=== PATIENT | female | born 1990 | race Hispanic/Latino ===

== ENCOUNTER 2017-08-29 13:00 | Emergency (ER) | payer BC, MEDICAID ==
[2017-08-29] MEDS ORDERED: IPRATROPIUM/ALBUTEROL SULFATE 3 ML SOLUTION IH ONE (13:51)
[2017-08-29 13:58] LABS: RAPID GROUP A STREP NEGATIVE (NEGATIVE)
== END 2017-08-29 14:58 | disposition home or self-care (01) ==
LOC: EDH 13:00
DX: J06.9 Acute upper respiratory infection, unspecified (principal); Z88.0 Allergy status to penicillin; Z87.891 Personal history of nicotine dependence
CPT/HCPCS: 87804; 87880; 94640

== ENCOUNTER 2019-07-30 14:04 | Emergency (ER) | payer BC ==
[2019-07-30 15:27] LABS: BILIRUBIN,URINE Negative (NEGATIVE); COLOR,URINE Dark Yellow (YELLOW); GLUCOSE, URINE (UA) Negative (NEGATIVE); KETONES,URINE Negative (NEGATIVE); LEUKOCYTE ESTERASE ,URINE Negative (NEGATIVE); NITRATE,URINE Negative (NEGATIVE); OCCULT BLOOD,URINE Moderate (NEGATIVE); PROTEIN,URINE Trace mg/dL (NEGATIVE)
[2019-07-30 15:32] LABS: HCG,QUAL RESULT NEGATIVE (NEGATIVE)
[2019-07-30 15:34] LABS: APPEARANCE,URINE SLIGHTLY CLOUDY (CLEAR)
[2019-07-30 15:37] LABS: AMPHET/METH SCREEN,URINE NEGATIVE (NEGATIVE); BARBITURATE SCREEN, URINE NEGATIVE (NEGATIVE); BENZODIAZEPINES SCREEN,URINE NEGATIVE (NEGATIVE); CANNABINOID SCREEN,URINE NEGATIVE (NEGATIVE); COCAINE SCREEN,URINE NEGATIVE (NEGATIVE); OPIATE SCREEN,URINE NEGATIVE (NEGATIVE); PHENCYCLIDINE SCREEN,URINE NEGATIVE (NEGATIVE)
[2019-07-30 15:40] LABS: BACTERIA,URINE Few /HPF (None Seen); MUCUS,URINE Few LPF (None Seen); RBC,URINE None Seen /HPF (0-1)
[2019-07-30 15:56] LABS: BASOPHILS % (AUTO) 0.4 % (0.0-5.0); EOSINOPHILS % (AUTO) 0.6 % (0.0-8.0); HEMATOCRIT 35.5 % (36-48); LYMPHOCYTES % (AUTO) 12.7 % (21.0-51.0); MEAN CORPUSCULAR HEMOGLOBIN 29.3 pg (27.0-33.0); MEAN CORPUSCULAR HGB CONC 33.5 g/dL (32.0-36.0); MEAN CORPUSCULAR VOLUME 87.4 fL (79-99); MONOCYTES % (AUTO) 4.6 % (3.0-13.0); NEUTROPHILS % (AUTO) 81.3 % (40.0-77.0); PLATELET COUNT (AUTO) 314 K/uL (130-400); RED BLOOD CELL COUNT(AUTO) 4.06 MIL/uL (4.00-5.50); RED CELL DISTRIBUTION WIDTH 11.9 % (11.0-15.5)
[2019-07-30 16:14] LABS: ALBUMIN 3.8 g/dL (3.5-5.0); BILIRUBIN,TOTAL 0.7 mg/dL (0.2-1.0); CREATININE 0.6 mg/dL (0.5-1.5); POTASSIUM 3.6 mmol/L (3.5-5.1); TOTAL PROTEIN, SERUM 6.8 g/dL (6.0-8.3)
== END 2019-07-30 16:56 | disposition home or self-care (01) ==
LOC: EDH 14:04
DX: N94.89 Other specified conditions associated with female genital organs and menstrual cycle (principal); R10.30 Lower abdominal pain, unspecified; R51 Headache; Z88.0 Allergy status to penicillin; Z87.891 Personal history of nicotine dependence
CPT/HCPCS: 36415; 80053; 80305; 81001; 81025; 85025

== ENCOUNTER 2021-08-08 15:42 | Emergency (ER) | payer BC ==
[~2021-08-08] VITALS: Ht 170.2 cm; Wt 67.1 kg
[2021-08-08 16:45] VITALS: BP 115/81
== END 2021-08-08 17:03 | disposition home or self-care (01) ==
LOC: EDH 15:42
DX: B34.9 Viral infection, unspecified (principal); Z20.822 Contact with and (suspected) exposure to COVID-19; Z88.0 Allergy status to penicillin
CPT/HCPCS: 87635; 87804 ×2; 99283; C9803

== ENCOUNTER 2021-12-23 19:46 | Emergency (ER) | payer BC ==
[~2021-12-23] VITALS: Ht 170.2 cm; Wt 66.7 kg
[2021-12-23 20:27] LABS: BASOPHILS % (AUTO) 0.7 % (0.0-5.0); EOSINOPHILS % (AUTO) 2.9 % (0.0-8.0); HEMATOCRIT 40.4 % (36-48); LYMPHOCYTES % (AUTO) 36.6 % (21.0-51.0); MEAN CORPUSCULAR HEMOGLOBIN 29.8 pg (27.0-33.0); MEAN CORPUSCULAR HGB CONC 33.9 g/dL (32.0-36.0); MEAN CORPUSCULAR VOLUME 87.8 fL (79-99); MONOCYTES % (AUTO) 6.1 % (3.0-13.0); NEUTROPHILS % (AUTO) 53.5 % (40.0-77.0); PLATELET COUNT (AUTO) 203 K/uL (130-400); RED CELL DISTRIBUTION WIDTH 12.3 % (11.0-15.5)
[2021-12-23] MEDS ORDERED: LORAZEPAM 1 MG TABLET PO ONE (20:30)
[2021-12-23 20:34] LABS: CREATININE 0.6 mg/dL (0.5-1.5); POTASSIUM 4.1 mmol/L (3.5-5.1)
[2021-12-23 20:40] LABS: ALBUMIN 4.3 g/dL (3.5-5.0); BILIRUBIN,TOTAL 0.4 mg/dL (0.2-1.0); TOTAL PROTEIN, SERUM 7.6 g/dL (6.0-8.3)
[2021-12-23 20:49] LABS: APPEARANCE,URINE Cloudy (CLEAR); BILIRUBIN,URINE Negative (NEGATIVE); COLOR,URINE Yellow (YELLOW); GLUCOSE, URINE (UA) Negative (NEGATIVE); KETONES,URINE Negative (NEGATIVE); LEUKOCYTE ESTERASE ,URINE Moderate (NEGATIVE); NITRATE,URINE Negative (NEGATIVE); OCCULT BLOOD,URINE Negative (NEGATIVE); PROTEIN,URINE Negative (NEGATIVE)
[2021-12-23 20:55] LABS: HCG,QUAL RESULT NEGATIVE (NEGATIVE)
[2021-12-23 21:21] LABS: BACTERIA,URINE Few /HPF (None Seen); MUCUS,URINE Rare LPF (None Seen); SQUAMOUS EPITHELIAL CELL,UR Many /HPF (0-2)
[2021-12-23 21:41] VITALS: BP 124/57
== END 2021-12-23 21:53 | disposition home or self-care (01) ==
LOC: EDH 19:46
DX: F41.0 Panic disorder [episodic paroxysmal anxiety] (principal); Z88.0 Allergy status to penicillin
CPT/HCPCS: 36415; 71045; 80053; 81001; 81025; 84484; 85025; 87088; 93005

== ENCOUNTER 2022-02-25 10:22 | Emergency (ER) | payer BC ==
[~2022-02-25] VITALS: Ht 172.7 cm; Wt 67.6 kg
[2022-02-25 10:45] LABS: APPEARANCE,URINE CLEAR (CLEAR); BILIRUBIN,URINE NEGATIVE (NEGATIVE); COLOR,URINE YELLOW (YELLOW); GLUCOSE, URINE (UA) NEGATIVE (NEGATIVE); KETONES,URINE NEGATIVE (NEGATIVE); LEUKOCYTE ESTERASE ,URINE TRACE (NEGATIVE); NITRATE,URINE NEGATIVE (NEGATIVE); OCCULT BLOOD,URINE MODERATE (NEGATIVE); PH,URINE 5.5 (5.0-8.0); PROTEIN,URINE NEGATIVE (NEGATIVE); UROBILINOGEN,URINE 0.2 mg/dL (0.2-1.0)
[2022-02-25 11:12] LABS: BASOPHILS % (AUTO) 0.5 % (0.0-5.0); EOSINOPHILS % (AUTO) 3.4 % (0.0-8.0); LYMPHOCYTES % (AUTO) 22.3 % (21.0-51.0); MEAN CORPUSCULAR HEMOGLOBIN 29.1 pg (27.0-33.0); MEAN CORPUSCULAR HGB CONC 33.9 g/dL (32.0-36.0); MEAN CORPUSCULAR VOLUME 85.6 fL (79-99); MONOCYTES % (AUTO) 5.1 % (3.0-13.0); NEUTROPHILS % (AUTO) 68.3 % (40.0-77.0); PLATELET COUNT (AUTO) 327 K/uL (130-400); RED BLOOD CELL COUNT(AUTO) 4.44 MIL/uL (4.00-5.50); RED CELL DISTRIBUTION WIDTH 12.4 % (11.0-15.5); WHITE BLOOD COUNT (AUTO) 8.2 K/uL (4.8-10.8)
[2022-02-25 11:40] LABS: BACTERIA,URINE Moderate /HPF (None Seen)
[2022-02-25 12:31] VITALS: BP 131/69
== END 2022-02-25 12:33 | disposition home or self-care (01) ==
LOC: EDH 10:22
DX: N93.8 Other specified abnormal uterine and vaginal bleeding (principal); Z88.0 Allergy status to penicillin
CPT/HCPCS: 36415; 81001; 84703; 85025; 86850; 86900; 86901; 87088

== ENCOUNTER 2022-04-06 11:29 | Emergency (ER) | payer BC ==
[~2022-04-06] VITALS: Ht 170.2 cm; Wt 68.9 kg
[2022-04-06 11:34] VITALS: BP 136/90
[2022-04-06] MEDS ORDERED: ONDANSETRON ODT 4MG TAB SL ONE (12:00)
[2022-04-06 12:03] LABS: BASOPHILS % (AUTO) 0.4 % (0.0-5.0); EOSINOPHILS % (AUTO) 2.4 % (0.0-8.0); HEMATOCRIT 38.4 % (36-48); LYMPHOCYTES % (AUTO) 18.4 % (21.0-51.0); MEAN CORPUSCULAR HEMOGLOBIN 29.6 pg (27.0-33.0); MEAN CORPUSCULAR HGB CONC 33.6 g/dL (32.0-36.0); MEAN CORPUSCULAR VOLUME 88.1 fL (79-99); MONOCYTES % (AUTO) 6.2 % (3.0-13.0); NEUTROPHILS % (AUTO) 72.3 % (40.0-77.0); PLATELET COUNT (AUTO) 371 K/uL (130-400); RED BLOOD CELL COUNT(AUTO) 4.36 MIL/uL (4.00-5.50); RED CELL DISTRIBUTION WIDTH 12.7 % (11.0-15.5); WHITE BLOOD COUNT (AUTO) 10.2 K/uL (4.8-10.8)
[2022-04-06 12:04] LABS: APPEARANCE,URINE CLEAR (CLEAR); BILIRUBIN,URINE NEGATIVE (NEGATIVE); COLOR,URINE YELLOW (YELLOW); GLUCOSE, URINE (UA) NEGATIVE (NEGATIVE); KETONES,URINE NEGATIVE (NEGATIVE); LEUKOCYTE ESTERASE ,URINE MODERATE (NEGATIVE); NITRATE,URINE NEGATIVE (NEGATIVE); OCCULT BLOOD,URINE NEGATIVE (NEGATIVE); PH,URINE 7.5 (5.0-8.0); PROTEIN,URINE NEGATIVE (NEGATIVE); UROBILINOGEN,URINE 0.2 mg/dL (0.2-1.0)
[2022-04-06 12:11] LABS: BACTERIA,URINE Rare /HPF (None Seen); RBC,URINE 0-1 /HPF (0-1); SQUAMOUS EPITHELIAL CELL,UR Moderate /HPF (0-2)
[2022-04-06 12:11] LABS: CREATININE 0.6 mg/dL (0.5-1.5); POTASSIUM 3.7 mmol/L (3.5-5.1)
[2022-04-06] MEDS ORDERED: CEFTRIAXONE 1G VIAL IVP ONE (12:30)
[2022-04-06] MEDS ORDERED: 0.9%NACL 1000ML 1,000 ML IV SCH (12:30)
[2022-04-06 12:38] LABS: ALBUMIN 4.1 g/dL (3.5-5.0); TOTAL PROTEIN, SERUM 7.6 g/dL (6.0-8.3)
[2022-04-06] MEDS ORDERED: ONDA4TAB10 PO (13:20)
[2022-04-06] MEDS ORDERED: CEPH500B PO (13:20)
== END 2022-04-06 13:49 | disposition home or self-care (01) ==
LOC: EDH 11:29
DX: O23.41 Unspecified infection of urinary tract in pregnancy, first trimester (principal); N13.9 Obstructive and reflux uropathy, unspecified; E86.0 Dehydration; Z3A.01 Less than 8 weeks gestation of pregnancy
CPT/HCPCS: 99284; 96374; 76801; 96361; 80053; 84702; 85025; 87088; 81001; 36415; J7030; J0696

== ENCOUNTER 2022-05-07 20:54 | Emergency (ER) | payer BC ==
[~2022-05-07] VITALS: Ht 170.2 cm; Wt 67.1 kg
[~2022-05-07 20:54] MED LIST: CEPH500B PO; ONDA4TAB10 PO
[2022-05-07 21:19] LABS: APPEARANCE,URINE CLEAR (CLEAR); BILIRUBIN,URINE NEGATIVE (NEGATIVE); COLOR,URINE COLORLESS (YELLOW); GLUCOSE, URINE (UA) NEGATIVE (NEGATIVE); KETONES,URINE 40 mg/dL (NEGATIVE); LEUKOCYTE ESTERASE ,URINE NEGATIVE Leu/uL (NEGATIVE); NITRATE,URINE NEGATIVE (NEGATIVE); OCCULT BLOOD,URINE NEGATIVE (NEGATIVE); PROTEIN,URINE NEGATIVE (NEGATIVE); UROBILINOGEN,URINE 0.2 mg/dL (0.2-1.0)
[2022-05-07 21:23] LABS: BASOPHILS % (AUTO) 0.3 % (0.0-5.0); EOSINOPHILS % (AUTO) 2.2 % (0.0-8.0); HEMATOCRIT 39.5 % (36-48); LYMPHOCYTES % (AUTO) 21.5 % (21.0-51.0); MEAN CORPUSCULAR HEMOGLOBIN 29.6 pg (27.0-33.0); MEAN CORPUSCULAR HGB CONC 34.9 g/dL (32.0-36.0); MEAN CORPUSCULAR VOLUME 84.6 fL (79-99); MONOCYTES % (AUTO) 5.2 % (3.0-13.0); NEUTROPHILS % (AUTO) 70.4 % (40.0-77.0); PLATELET COUNT (AUTO) 326 K/uL (130-400); RED BLOOD CELL COUNT(AUTO) 4.67 MIL/uL (4.00-5.50); RED CELL DISTRIBUTION WIDTH 12.7 % (11.0-15.5)
[2022-05-07 21:25] LABS: RBC,URINE 0-1 /HPF (0-1); SQUAMOUS EPITHELIAL CELL,UR MOD /HPF (0-2)
[2022-05-07 21:38] LABS: CREATININE 0.6 mg/dL (0.5-1.5); POTASSIUM 3.9 mmol/L (3.5-5.1)
[2022-05-07 22:04] LABS: ALBUMIN 4.1 g/dL (3.5-5.0)
[2022-05-07 22:32] VITALS: BP 128/67
== END 2022-05-07 22:35 | disposition home or self-care (01) ==
LOC: EDH 20:54
DX: O46.91 Antepartum hemorrhage, unspecified, first trimester (principal); Z88.0 Allergy status to penicillin; Z98.890 Other specified postprocedural states; Z3A.10 10 weeks gestation of pregnancy
CPT/HCPCS: 36415; 76801; 80053; 81001; 84702; 85025; 86900; 86901

== ENCOUNTER 2022-06-08 19:59 | Emergency (ER) | payer BC, MEDICAID ==
[~2022-06-08] VITALS: Ht 18303.2 cm; Wt 66.2 kg
[2022-06-08] MEDS ORDERED: 0.9%NACL 1000ML 1,000 ML IV ONE ×2 (22:14→22:30)
[2022-06-08] MEDS ORDERED: ONDANSETRON 4MG INJ ONE (22:14)
[2022-06-08] MEDS ORDERED: MORPHINE 4 MG SYG IVP ONE (22:30)
[2022-06-08] MEDS ORDERED: ONDANSETRON 4MG INJ IVP ONE (22:30)
[2022-06-09] MEDS ORDERED: ONDA22I PO
[2022-06-09 00:03] VITALS: BP 121/58
== END 2022-06-09 00:14 | disposition home or self-care (01) ==
LOC: EDH 19:59
DX: O26.92 Pregnancy related conditions, unspecified, second trimester (principal); R51.9 Headache, unspecified; Z3A.16 16 weeks gestation of pregnancy; Z88.0 Allergy status to penicillin; Z20.822 Contact with and (suspected) exposure to COVID-19
CPT/HCPCS: 99284; 96374; 87635; 96361; 96375; 87804 ×2; C9803; J7030; J2405; J2270

== ENCOUNTER 2022-06-29 12:32 | Emergency (ER) | payer BC, MEDICAID, OTHER ==
[~2022-06-29] VITALS: Ht 170.2 cm; Wt 65.3 kg
[~2022-06-29 12:32] MED LIST changes: +ONDA22I PO
[2022-06-29 13:23] VITALS: BP 105/66
[2022-06-29] MEDS ORDERED: ACETAMINOPHEN 500 MG TABLET ONE (14:56)
[2022-06-29] MEDS ORDERED: ACETAMINOPHEN 500 MG TABLET PO ONE (15:00)
[2022-06-29 15:10] LABS: APPEARANCE,URINE CLOUDY (CLEAR); BILIRUBIN,URINE NEGATIVE (NEGATIVE); COLOR,URINE LIGHT-YELLOW (YELLOW); GLUCOSE, URINE (UA) NEGATIVE (NEGATIVE); KETONES,URINE NEGATIVE (NEGATIVE); LEUKOCYTE ESTERASE ,URINE 500 Leu/uL (NEGATIVE); NITRATE,URINE NEGATIVE (NEGATIVE); OCCULT BLOOD,URINE NEGATIVE (NEGATIVE); PH,URINE 6.5 (5.0-8.0); PROTEIN,URINE NEGATIVE (NEGATIVE); UROBILINOGEN,URINE 0.2 mg/dL (0.2-1.0)
[2022-06-29 15:21] LABS: BACTERIA,URINE MANY /HPF (None Seen); MUCUS,URINE RARE LPF (None Seen); SQUAMOUS EPITHELIAL CELL,UR MOD /HPF (0-2); YEAST,URINE BUDDING FEW /HPF (None Seen)
[2022-06-29] MEDS ORDERED: CEFTRIAXONE 1G VIAL IM ONE (15:30)
[2022-06-29] MEDS ORDERED: CEFTRIAXONE 1G VIAL ONE (15:57)
[2022-06-29] MEDS ORDERED: LIDOCAINE HCL 1% 10 ML VIAL ONE (15:59)
[2022-06-29] MEDS ORDERED: ACET-2247 PO (16:06)
[2022-06-29] MEDS ORDERED: CEPH500B PO (16:06)
[2022-06-29 16:12] LABS: BASOPHILS % (AUTO) 0.1 % (0.0-5.0); EOSINOPHILS % (AUTO) 2.2 % (0.0-8.0); HEMATOCRIT 35.5 % (36-48); LYMPHOCYTES % (AUTO) 22.3 % (21.0-51.0); MEAN CORPUSCULAR HEMOGLOBIN 29.5 pg (27.0-33.0); MEAN CORPUSCULAR HGB CONC 34.9 g/dL (32.0-36.0); MEAN CORPUSCULAR VOLUME 84.3 fL (79-99); MONOCYTES % (AUTO) 5.3 % (3.0-13.0); NEUTROPHILS % (AUTO) 69.5 % (40.0-77.0); PLATELET COUNT (AUTO) 302 K/uL (130-400); RED BLOOD CELL COUNT(AUTO) 4.21 MIL/uL (4.00-5.50); RED CELL DISTRIBUTION WIDTH 13.8 % (11.0-15.5); WHITE BLOOD COUNT (AUTO) 8.7 K/uL (4.8-10.8)
[2022-06-29 16:49] LABS: ALBUMIN 3.1 g/dL (3.5-5.0); CREATININE 0.5 mg/dL (0.5-1.5); POTASSIUM 3.5 mmol/L (3.5-5.1); TOTAL PROTEIN, SERUM 6.9 g/dL (6.0-8.3)
== END 2022-06-29 16:14 | disposition home or self-care (01) ==
LOC: EDH 12:32
DX: O9A.212 Injury, poisoning and certain other consequences of external causes complicating pregnancy, second trimester (principal); S16.1XXA Strain of muscle, fascia and tendon at neck level, initial encounter; N39.0 Urinary tract infection, site not specified; Z3A.19 19 weeks gestation of pregnancy; V49.88XA Car occupant (driver) (passenger) injured in other specified transport accidents, initial encounter; Y93.89 Activity, other specified; Y92.89 Other specified places as the place of occurrence of the external cause; Y99.8 Other external cause status
CPT/HCPCS: 99284; 76805; 80053; 84702; 85025; 87088; 81001; 36415; 96372; J0696; J3490

== ENCOUNTER 2022-11-20 15:54 | Emergency (ER) | payer BC ==
[~2022-11-20] VITALS: Ht 172.7 cm; Wt 68.0 kg
[2022-11-20 15:54] VITALS: BP 134/78
[~2022-11-20 15:54] MED LIST changes: +ACET-2247 PO
[2022-11-20] MEDS ORDERED: KETOROLAC 30MG VIAL (30MG/ML) IM ONE (16:30)
[2022-11-20 17:03] LABS: BASOPHILS % (AUTO) 0.8 % (0.0-5.0); EOSINOPHILS % (AUTO) 4.6 % (0.0-8.0); HEMATOCRIT 32.9 % (36-48); LYMPHOCYTES % (AUTO) 35.5 % (21.0-51.0); MEAN CORPUSCULAR HEMOGLOBIN 25.6 pg (27.0-33.0); MEAN CORPUSCULAR HGB CONC 30.7 g/dL (32.0-36.0); MEAN CORPUSCULAR VOLUME 83.3 fL (79-99); MONOCYTES % (AUTO) 5.7 % (3.0-13.0); NEUTROPHILS % (AUTO) 52.8 % (40.0-77.0); PLATELET COUNT (AUTO) 415 K/uL (130-400); RED BLOOD CELL COUNT(AUTO) 3.95 MIL/uL (4.00-5.50); RED CELL DISTRIBUTION WIDTH 15.7 % (11.0-15.5); WHITE BLOOD COUNT (AUTO) 6.5 K/uL (4.8-10.8)
[2022-11-20 17:13] LABS: CREATININE 0.7 mg/dL (0.5-1.5); POTASSIUM 4.2 mmol/L (3.5-5.1)
[2022-11-20] MEDS ORDERED: METH-662 PO (17:15)
[2022-11-20] MEDS ORDERED: ONDA22I PO (17:15)
[2022-11-20 17:18] LABS: ALBUMIN 3.2 g/dL (3.5-5.0); TOTAL PROTEIN, SERUM 6.7 g/dL (6.0-8.3)
[2022-11-20 17:23] LABS: APPEARANCE,URINE CLEAR (CLEAR); BILIRUBIN,URINE NEGATIVE (NEGATIVE); COLOR,URINE LIGHT-YELLOW (YELLOW); GLUCOSE, URINE (UA) NEGATIVE (NEGATIVE); KETONES,URINE NEGATIVE (NEGATIVE); LEUKOCYTE ESTERASE ,URINE 250 Leu/uL (NEGATIVE); NITRATE,URINE NEGATIVE (NEGATIVE); OCCULT BLOOD,URINE LARGE (NEGATIVE); PROTEIN,URINE NEGATIVE (NEGATIVE); UROBILINOGEN,URINE 0.2 mg/dL (0.2-1.0)
[2022-11-20 17:27] LABS: BACTERIA,URINE RARE /HPF (None Seen); MUCUS,URINE RARE LPF (None Seen); RBC,URINE 26-50 /HPF (0-1); SQUAMOUS EPITHELIAL CELL,UR RARE /HPF (0-2); WBC,URINE 26-50 /HPF (0-1)
[2022-11-20] MEDS ORDERED: ONDANSETRON ODT 4MG TAB SL ONE (17:30)
== END 2022-11-20 17:38 | disposition home or self-care (01) ==
LOC: EDH 15:54
DX: M54.9 Dorsalgia, unspecified (principal); Z88.0 Allergy status to penicillin; Z79.899 Other long term (current) drug therapy; Z98.890 Other specified postprocedural states; W01.0XXA Fall on same level from slipping, tripping and stumbling without subsequent striking against object, initial encounter; Y93.89 Activity, other specified; Y92.89 Other specified places as the place of occurrence of the external cause; Y99.8 Other external cause status
CPT/HCPCS: 99284; 80053; 85025; 87088; 81001; 36415; 72100; 72070; 96372; J1885

== ENCOUNTER 2023-01-25 01:23 | Emergency (ER) | payer BC ==
[~2023-01-25] VITALS: Ht 170.2 cm; Wt 74.8 kg
[~2023-01-25 01:23] MED LIST changes: +METH-662 PO
[2023-01-25] MEDS ORDERED: DiphenhydrAMINE HCL 50 MG/ML VIAL IV ONE (02:00)
[2023-01-25] MEDS ORDERED: KETOROLAC 30MG VIAL (30MG/ML) IVP ONE (02:00)
[2023-01-25] MEDS ORDERED: METOCLOPRAMIDE 10 MG/2 ML VIAL IVP ONE (02:00)
[2023-01-25] MEDS ORDERED: LORAZEPAM 2 MG/ML 1 ML VIAL IVP ONE (03:00)
[2023-01-25 03:11] VITALS: BP 135/78
[2023-01-25] MEDS ORDERED: IBUP-1493 PO (03:17)
== END 2023-01-25 03:30 | disposition home or self-care (01) ==
LOC: EDH 01:23
DX: G43.909 Migraine, unspecified, not intractable, without status migrainosus (principal); F41.9 Anxiety disorder, unspecified; Z88.0 Allergy status to penicillin
CPT/HCPCS: 99284; 96374; 96375; J1200; J2060; J1885; J2765

== ENCOUNTER 2023-04-03 17:36 | Emergency (ER) | payer BC ==
[~2023-04-03] VITALS: Ht 170.2 cm; Wt 75.3 kg
[~2023-04-03 17:36] MED LIST changes: +IBUP-1493 PO
[2023-04-03 18:18] VITALS: BP 149/67; PULSE 97; RESP 18
[2023-04-03] MEDS ORDERED: ONDANSETRON ODT 4MG TAB ONE (18:24)
[2023-04-03] MEDS ORDERED: ONDANSETRON ODT 4MG TAB SL ONE (18:30)
[2023-04-03 18:47] LABS: APPEARANCE,URINE CLOUDY (CLEAR); BILIRUBIN,URINE NEGATIVE (NEGATIVE); COLOR,URINE YELLOW (YELLOW); GLUCOSE, URINE (UA) NEGATIVE (NEGATIVE); KETONES,URINE NEGATIVE (NEGATIVE); LEUKOCYTE ESTERASE ,URINE 250 Leu/uL (NEGATIVE); NITRATE,URINE NEGATIVE (NEGATIVE); OCCULT BLOOD,URINE NEGATIVE (NEGATIVE); PH,URINE 5.5 (5.0-8.0); PROTEIN,URINE 10 mg/dL (NEGATIVE); UROBILINOGEN,URINE 0.2 mg/dL (0.2-1.0)
[2023-04-03 18:51] LABS: ADD UA MICROSCOPIC YES
[2023-04-03 18:53] LABS: BASOPHILS # (AUTO) 0.06 K/uL (0.00-0.20); BASOPHILS % (AUTO) 0.4 % (0.0-5.0); EOSINOPHILS # (AUTO) 0.06 K/uL (0.00-0.70); EOSINOPHILS % (AUTO) 0.4 % (0.0-8.0); HEMATOCRIT 38.5 % (36-48); IMMATURE GRANULOCYTE ABSOLUTE 0.06 K/uL (0-1); LYMPHOCYTES # (AUTO) 1.2 K/uL (1.0-4.8); LYMPHOCYTES % (AUTO) 7.7 % (21.0-51.0); MEAN CORPUSCULAR HEMOGLOBIN 25.7 pg (27.0-33.0); MEAN CORPUSCULAR HGB CONC 32.5 g/dL (32.0-36.0); MEAN CORPUSCULAR VOLUME 79.1 fL (79-99); MONOCYTES # (AUTO) 0.6 K/uL (0.1-1.0); MONOCYTES % (AUTO) 3.9 % (3.0-13.0); NEUTROPHILS # (AUTO) 13.8 K/uL (1.8-7.7); NEUTROPHILS % (AUTO) 87.2 % (40.0-77.0); PLATELET COUNT (AUTO) 392 K/uL (130-400); RED BLOOD CELL COUNT(AUTO) 4.87 MIL/uL (4.00-5.50); RED CELL DISTRIBUTION WIDTH 14.6 % (11.0-15.5); WHITE BLOOD COUNT (AUTO) 15.8 K/uL (4.8-10.8)
[2023-04-03 18:55] LABS: BACTERIA,URINE RARE /HPF (None Seen); MUCUS,URINE FEW LPF (None Seen); OTHER CASTS, URINE 6 /LPF (None Seen); SQUAMOUS EPITHELIAL CELL,UR MOD /HPF (0-2); UNCLASSIFIED CRYSTAL 2 /HPF (None Seen); YEAST,URINE BUDDING RARE /HPF (None Seen)
[2023-04-03 19:00] LABS: CREATININE 0.6 mg/dL (0.5-1.5); POTASSIUM 3.6 mmol/L (3.5-5.1)
[2023-04-03 19:05] LABS: ALBUMIN 3.9 g/dL (3.5-5.0); BILIRUBIN,TOTAL 0.5 mg/dL (0.2-1.0); TOTAL PROTEIN, SERUM 7.7 g/dL (6.0-8.3)
[2023-04-03] MEDS ORDERED: 0.9%NACL 1000ML 1,000 ML IV ONE ×2 (20:00→22:00)
[2023-04-03] MEDS ORDERED: ONDANSETRON 4MG INJ IVP ONE (20:00)
[2023-04-03] MEDS ORDERED: IOHEXOL 350 MG/ML 100ML INFUS..BTL IV ONE (20:30)
[2023-04-03] MEDS ORDERED: KETOROLAC 30MG VIAL (30MG/ML) IM ONE (22:00)
[2023-04-03] MEDS ORDERED: METOCLOPRAMIDE 10 MG/2 ML VIAL IM ONE (22:00)
[2023-04-03] MEDS ORDERED: SULF1TAB42 PO (22:06)
== END 2023-04-03 23:24 | disposition home or self-care (01) ==
LOC: EDH 17:36
DX: N39.0 Urinary tract infection, site not specified (principal)
CPT/HCPCS: 99284; 74177; 96374; 96361; 80053; 85025; 87088; 81001; 81025; 36415; 96372 ×2; J7030 ×2; J2405; J1885; J2765; Q9967

== ENCOUNTER 2023-07-03 10:13 | Emergency (ER) | payer BC ==
[~2023-07-03] VITALS: Ht 170.2 cm; Wt 79.5 kg
[~2023-07-03 10:13] MED LIST changes: +SULF1TAB42 PO
[2023-07-03 10:15] VITALS: BP 143/77; PULSE 94; RESP 18
[2023-07-03] MEDS ORDERED: KETOROLAC 60 MG VIAL (30MG/ML) IM ONE (11:00)
[2023-07-03] MEDS ORDERED: AZITHROMYCIN 250 MG TABLET PO ONE (11:30)
[2023-07-03] MEDS ORDERED: HYDROCODONE/ACETAMINOPHEN 5/325 MG TAB PO ONE (12:00)
[2023-07-03] MEDS ORDERED: ACET-66 PO (12:40)
[2023-07-03] MEDS ORDERED: AZIT250T PO (12:40)
[2023-07-03] MEDS ORDERED: CORTSOL AD (12:40)
== END 2023-07-03 12:54 | disposition home or self-care (01) ==
LOC: EDH 10:13
DX: O26.891 Other specified pregnancy related conditions, first trimester (principal); H66.91 Otitis media, unspecified, right ear; H92.01 Otalgia, right ear; H60.91 Unspecified otitis externa, right ear; R10.2 Pelvic and perineal pain; R07.0 Pain in throat; Z3A.01 Less than 8 weeks gestation of pregnancy; Z79.1 Long term (current) use of non-steroidal anti-inflammatories (NSAID); Z88.0 Allergy status to penicillin
CPT/HCPCS: 36415; 76801; 81025; 84702; 87880

== ENCOUNTER 2023-07-08 16:07 | Emergency (ER) | payer BC ==
[~2023-07-08] VITALS: Ht 170.2 cm; Wt 78.5 kg
[~2023-07-08 16:07] MED LIST changes: +ACET-66 PO; +AZIT250T PO; +CORTSOL AD
[2023-07-08 18:10] LABS: BILIRUBIN,URINE NEGATIVE (NEGATIVE); COLOR,URINE YELLOW (YELLOW); GLUCOSE, URINE (UA) NEGATIVE (NEGATIVE); KETONES,URINE 5 mg/dL (NEGATIVE); LEUKOCYTE ESTERASE ,URINE 500 Leu/uL (NEGATIVE); NITRATE,URINE NEGATIVE (NEGATIVE); OCCULT BLOOD,URINE MODERATE (NEGATIVE); PH,URINE 5.5 (5.0-8.0); PROTEIN,URINE 30 mg/dL (NEGATIVE); UROBILINOGEN,URINE 0.2 mg/dL (0.2-1.0)
[2023-07-08 18:12] LABS: ADD UA MICROSCOPIC YES; APPEARANCE,URINE CLOUDY (CLEAR)
[2023-07-08 18:15] LABS: BACTERIA,URINE MOD /HPF (None Seen); RBC,URINE >100 /HPF (0-1); SQUAMOUS EPITHELIAL CELL,UR MANY /HPF (0-2); WBC,URINE >100 /HPF (0-1)
[2023-07-08 18:18] LABS: BASOPHILS # (AUTO) 0.03 K/uL (0.00-0.20); BASOPHILS % (AUTO) 0.3 % (0.0-5.0); EOSINOPHILS # (AUTO) 0.26 K/uL (0.00-0.70); EOSINOPHILS % (AUTO) 2.5 % (0.0-8.0); HEMATOCRIT 38.2 % (36-48); IMMATURE GRANULOCYTE ABSOLUTE 0.05 K/uL (0-1); LYMPHOCYTES % (AUTO) 29.3 % (21.0-51.0); MEAN CORPUSCULAR VOLUME 81.8 fL (79-99); MONOCYTES # (AUTO) 0.6 K/uL (0.1-1.0); MONOCYTES % (AUTO) 5.5 % (3.0-13.0); NEUTROPHILS # (AUTO) 6.4 K/uL (1.8-7.7); NEUTROPHILS % (AUTO) 61.9 % (40.0-77.0); PLATELET COUNT (AUTO) 413 K/uL (130-400); RED BLOOD CELL COUNT(AUTO) 4.67 MIL/uL (4.00-5.50); RED CELL DISTRIBUTION WIDTH 15.1 % (11.0-15.5); WHITE BLOOD COUNT (AUTO) 10.3 K/uL (4.8-10.8)
[2023-07-08 18:42] LABS: CREATININE 0.6 mg/dL (0.5-1.5); POTASSIUM 3.6 mmol/L (3.5-5.1)
[2023-07-08 19:08] LABS: ALBUMIN 3.7 g/dL (3.5-5.0); BILIRUBIN,TOTAL 0.5 mg/dL (0.2-1.0); TOTAL PROTEIN, SERUM 7.4 g/dL (6.0-8.3)
[2023-07-08] MEDS ORDERED: MACR100 PO (19:54)
[2023-07-08 19:57] VITALS: BP 124/50; PULSE 80; RESP 14; O2SAT 97
[2023-07-08] MEDS ORDERED: NITROFURANTOIN MONOHYD/M-CRYST 100 MG CAPSULE PO ONE (20:00)
== END 2023-07-08 20:02 | disposition home or self-care (01) ==
LOC: EDH 16:07
DX: O26.891 Other specified pregnancy related conditions, first trimester (principal); O23.41 Unspecified infection of urinary tract in pregnancy, first trimester; N39.0 Urinary tract infection, site not specified; S39.012A Strain of muscle, fascia and tendon of lower back, initial encounter; Z3A.01 Less than 8 weeks gestation of pregnancy; Z88.0 Allergy status to penicillin; W18.30XA Fall on same level, unspecified, initial encounter; Y93.89 Activity, other specified; Y92.89 Other specified places as the place of occurrence of the external cause; Y99.8 Other external cause status
CPT/HCPCS: 36415; 76801; 80053; 81001; 84702; 85025; 86900; 86901; 87088

== ENCOUNTER 2023-08-31 10:54 | Emergency (ER) | payer BC ==
[~2023-08-31] VITALS: Ht 170.2 cm; Wt 72.6 kg
[~2023-08-31 10:54] MED LIST changes: +MACR100 PO
[2023-08-31 11:30] VITALS: BP 161/59; PULSE 94; RESP 20
[2023-08-31] MEDS ORDERED: ONDANSETRON 4MG INJ IVP ONE (13:00)
[2023-08-31] MEDS ORDERED: 0.9%NACL 1000ML 1,000 ML IV ONE (13:00)
[2023-08-31] MEDS ORDERED: LACTATED RINGERS 1000ML 1,000 ML IV ONE (14:00)
[2023-08-31] MEDS ORDERED: ACETAMINOPHEN 500 MG TABLET PO ONE (14:00)
[2023-08-31 14:10] LABS: APPEARANCE,URINE CLOUDY (CLEAR); BILIRUBIN,URINE NEGATIVE (NEGATIVE); COLOR,URINE LIGHT-YELLOW (YELLOW); GLUCOSE, URINE (UA) NEGATIVE (NEGATIVE); KETONES,URINE 20 mg/dL (NEGATIVE); LEUKOCYTE ESTERASE ,URINE 75 Leu/uL (NEGATIVE); NITRATE,URINE NEGATIVE (NEGATIVE); OCCULT BLOOD,URINE NEGATIVE (NEGATIVE); PROTEIN,URINE NEGATIVE (NEGATIVE); UROBILINOGEN,URINE 0.2 mg/dL (0.2-1.0)
[2023-08-31 14:15] LABS: ADD UA MICROSCOPIC YES
[2023-08-31 14:19] LABS: INFLUENZA TYPE A Negative For Type A (NEGATIVE); INFLUENZA TYPE B Negative For Type B (NEGATIVE)
[2023-08-31 14:20] LABS: COVID19 (SARS ANTIGEN RAPID) PRESUMPTIVE NEGATIVE (NEGATIVE)
[2023-08-31 14:20] LABS: BACTERIA,URINE RARE /HPF (None Seen); SQUAMOUS EPITHELIAL CELL,UR MOD /HPF (0-2); UNCLASSIFIED CRYSTAL 2 /HPF (None Seen)
[2023-08-31 14:21] LABS: BASOPHILS # (AUTO) 0.03 K/uL (0.00-0.20); BASOPHILS % (AUTO) 0.3 % (0.0-5.0); EOSINOPHILS # (AUTO) 0.23 K/uL (0.00-0.70); HEMATOCRIT 35.6 % (36-48); IMMATURE GRANULOCYTE ABSOLUTE 0.06 K/uL (0-1); LYMPHOCYTES # (AUTO) 2.2 K/uL (1.0-4.8); LYMPHOCYTES % (AUTO) 19.6 % (21.0-51.0); MEAN CORPUSCULAR VOLUME 82.4 fL (79-99); MONOCYTES # (AUTO) 0.6 K/uL (0.1-1.0); MONOCYTES % (AUTO) 5.6 % (3.0-13.0); NEUTROPHILS # (AUTO) 8.1 K/uL (1.8-7.7); PLATELET COUNT (AUTO) 347 K/uL (130-400); RED BLOOD CELL COUNT(AUTO) 4.32 MIL/uL (4.00-5.50); RED CELL DISTRIBUTION WIDTH 14.2 % (11.0-15.5); WHITE BLOOD COUNT (AUTO) 11.2 K/uL (4.8-10.8)
[2023-08-31 14:41] LABS: CREATININE 0.5 mg/dL (0.5-1.5); POTASSIUM 3.8 mmol/L (3.5-5.1)
[2023-08-31 14:46] LABS: ALBUMIN 3.3 g/dL (3.5-5.0); BILIRUBIN,TOTAL 0.4 mg/dL (0.2-1.0)
[2023-08-31] MEDS ORDERED: NITROFURANTOIN MONOHYD/M-CRYST 100 MG CAPSULE PO ONE (15:00)
[2023-08-31] MEDS ORDERED: PYRI25TA3 PO (15:01)
[2023-08-31] MEDS ORDERED: MACR100 PO (15:01)
== END 2023-08-31 15:29 | disposition home or self-care (01) ==
LOC: EDH 10:54
DX: N39.0 Urinary tract infection, site not specified (principal); Z79.1 Long term (current) use of non-steroidal anti-inflammatories (NSAID); Z88.0 Allergy status to penicillin; Z20.822 Contact with and (suspected) exposure to COVID-19
CPT/HCPCS: 99284; 96374; 87426; 80053; 83690; 85025; 87088; 87804 ×2; 81001; 36415; J7120; J2405

== ENCOUNTER 2024-02-07 12:58 | Emergency (ER) | payer BC ==
[~2024-02-07] VITALS: Ht 170.2 cm; Wt 81.6 kg
[~2024-02-07 12:58] MED LIST changes: +ONDA-243 PO; -ONDA4TAB10 PO; +PYRI25TA3 PO
[2024-02-07] MEDS: KETOROLAC 15MG/ML VIAL (15MG/ML) IM ONE (15:04)
[2024-02-07] MEDS: MORPHINE 2 MG SYG IM ONE (15:05)
[2024-02-07 15:39] LABS: ADD UA MICROSCOPIC YES; APPEARANCE,URINE CLEAR (CLEAR); BILIRUBIN,URINE NEGATIVE (NEGATIVE); COLOR,URINE COLORLESS (YELLOW); GLUCOSE, URINE (UA) NEGATIVE (NEGATIVE); KETONES,URINE NEGATIVE (NEGATIVE); LEUKOCYTE ESTERASE ,URINE 75 Leu/uL (NEGATIVE); NITRATE,URINE NEGATIVE (NEGATIVE); OCCULT BLOOD,URINE LARGE (NEGATIVE); PROTEIN,URINE NEGATIVE (NEGATIVE); UROBILINOGEN,URINE 0.2 mg/dL (0.2-1.0)
[2024-02-07 15:41] LABS: BACTERIA,URINE RARE /HPF (None Seen); MUCUS,URINE RARE LPF (None Seen); SQUAMOUS EPITHELIAL CELL,UR RARE /HPF (0-2)
[2024-02-07] MEDS ORDERED: KETO10TA2 PO (16:05)
[2024-02-07] MEDS ORDERED: MACR100 PO (16:05)
[2024-02-07 16:15] VITALS: BP 126/85; PULSE 86; RESP 14; O2SAT 100
== END 2024-02-07 16:19 | disposition home or self-care (01) ==
LOC: EDH 12:58
DX: N39.0 Urinary tract infection, site not specified (principal); M54.50 Low back pain, unspecified; Z79.899 Other long term (current) drug therapy; Z98.890 Other specified postprocedural states
CPT/HCPCS: 99284; 87086; 81001; 96372 ×2; J2270; J1885

== ENCOUNTER 2024-02-10 20:13 | Emergency (ER) | payer BC ==
[~2024-02-10] VITALS: Ht 170.2 cm; Wt 81.6 kg
[~2024-02-10 20:13] MED LIST changes: +KETO10TA2 PO
[2024-02-10] MEDS: KETOROLAC 15MG/ML VIAL (15MG/ML) IM STA (20:32)
[2024-02-10] MEDS: HYDROCODONE/ACETAMINOPHEN 5/325 MG TAB PO STA (20:32)
[2024-02-10] MEDS: METHOCARBAMOL 500 MG TABLET PO STA (20:32)
[2024-02-10] MEDS ORDERED: METH100054 PO (22:17)
[2024-02-10 22:22] VITALS: BP 138/84; PULSE 87; RESP 16; O2SAT 100
== END 2024-02-10 22:26 | disposition home or self-care (01) ==
LOC: EDH 20:13
DX: O90.89 Other complications of the puerperium, not elsewhere classified (principal); M54.50 Low back pain, unspecified; Z88.0 Allergy status to penicillin; Z79.2 Long term (current) use of antibiotics; Z79.899 Other long term (current) drug therapy; Z98.890 Other specified postprocedural states; Z87.42 Personal history of other diseases of the female genital tract
CPT/HCPCS: 99284; 72100; 96372; J1885

== ENCOUNTER 2024-05-13 12:44 | Emergency (ER) | payer BC ==
[~2024-05-13] VITALS: Ht 170.2 cm; Wt 86.2 kg
[~2024-05-13 12:44] MED LIST changes: +METH-811 PO; +METH100054 PO
[2024-05-13] MEDS: diazePAM 2 MG TAB PO ONE (13:26)
[2024-05-13 14:31] VITALS: BP 119/83; PULSE 65; RESP 20; TEMP 98.6; O2SAT 99
== END 2024-05-13 14:32 | disposition home or self-care (01) ==
LOC: EDH 12:44
DX: F41.0 Panic disorder [episodic paroxysmal anxiety] (principal); Z79.1 Long term (current) use of non-steroidal anti-inflammatories (NSAID); Z79.899 Other long term (current) drug therapy; Z88.0 Allergy status to penicillin; Z98.890 Other specified postprocedural states

== ENCOUNTER 2025-01-04 21:52 | Emergency (ER) | payer BC ==
[~2025-01-04] VITALS: Ht 170.2 cm; Wt 94.8 kg
[2025-01-04 22:13] LABS: APPEARANCE,URINE CLOUDY (CLEAR); BILIRUBIN,URINE NEGATIVE (NEGATIVE); COLOR,URINE LIGHT-YELLOW (YELLOW); GLUCOSE, URINE (UA) NEGATIVE (NEGATIVE); KETONES,URINE NEGATIVE (NEGATIVE); LEUKOCYTE ESTERASE ,URINE NEGATIVE Leu/uL (NEGATIVE); NITRATE,URINE NEGATIVE (NEGATIVE); OCCULT BLOOD,URINE NEGATIVE (NEGATIVE); PROTEIN,URINE NEGATIVE (NEGATIVE); UROBILINOGEN,URINE 0.2 mg/dL (0.2-1.0)
[2025-01-04 22:14] LABS: ADD UA MICROSCOPIC YES
[2025-01-04 22:16] LABS: BACTERIA,URINE FEW /HPF (None Seen); HCG,QUALITATIVE URINE NEGATIVE (NEGATIVE); MUCUS,URINE RARE LPF (None Seen); RBC,URINE 0-1 /HPF (0-1); SQUAMOUS EPITHELIAL CELL,UR RARE /HPF (0-2)
[2025-01-04 23:04] LABS: BASOPHILS # (AUTO) 0.05 K/uL (0.00-0.20); BASOPHILS % (AUTO) 0.6 % (0.0-5.0); EOSINOPHILS # (AUTO) 0.26 K/uL (0.00-0.70); EOSINOPHILS % (AUTO) 3.1 % (0.0-8.0); HEMATOCRIT 38.2 % (36-48); IMMATURE GRANULOCYTE ABSOLUTE 0.02 K/uL (0-1); LYMPHOCYTES # (AUTO) 2.8 K/uL (1.0-4.8); LYMPHOCYTES % (AUTO) 33.4 % (21.0-51.0); MEAN CORPUSCULAR HEMOGLOBIN 27.5 pg (27.0-33.0); MEAN CORPUSCULAR VOLUME 83.2 fL (79-99); MONOCYTES # (AUTO) 0.5 K/uL (0.1-1.0); MONOCYTES % (AUTO) 5.6 % (3.0-13.0); NEUTROPHILS # (AUTO) 4.8 K/uL (1.8-7.7); NEUTROPHILS % (AUTO) 57.1 % (40.0-77.0); PLATELET COUNT (AUTO) 388 K/uL (130-400); RED BLOOD CELL COUNT(AUTO) 4.59 MIL/uL (4.00-5.50); RED CELL DISTRIBUTION WIDTH 13.7 % (11.0-15.5); WHITE BLOOD COUNT (AUTO) 8.4 K/uL (4.8-10.8)
[2025-01-04 23:12] LABS: CREATININE 0.8 mg/dL (0.5-1.0); POTASSIUM 3.5 mmol/L (3.5-5.1)
--- NOTE | 2025-01-04 23:41 | ERN ---
General Chief Complaint: Headache Stated Complaint: HEADACHE Time Seen by MD: 23:43 Source: patient History of Present Illness Initial Comments Patient is a 52-year-old female who was working outside today and noticed this morning that she was getting some eye pain and cheek pain that then migrated to the back of her head and now to her neck and shoulder. The the symptoms kept getting worse and were not relieved by [id number] NSAIDs so the patient comes in. Allergies: Coded Allergies: Penicillins (Verified Allergy, Unknown, 12/25/14) Home Meds Active Scripts Methocarbamol (Methocarbamol) 500 Mg Tablet, 1 TAB PO TID for 7 Days, #21 TAB 0 Refills Prov:PENNIE FOLEY STOCK REPAIRER 05/12/24 Methocarbamol (Methocarbamol) 1,000 Mg Tablet, 1000 MG PO QIDP PRN for PAIN for 5 Days, #20 TAB Prov:PENNIE FOLEY STOCK REPAIRER 02/10/24 Nitrofurantoin/Nitrofuran Mac (Macrobid) 100 Mg Cap, 100 MG PO BID for 5 Days, #10 CAP Prov:CASSIDY HERNANDEZ 02/07/24 Ketorolac Tromethamine (Ketorolac Tromethamine) 10 Mg Tablet, 10 MG PO BID for 5 Days, #10 TAB Prov:CASSIDY HERNANDEZ 02/07/24 Pyridoxine HCl (Vitamin B-6) 25 Mg Tablet, 25 MG PO Q6HPRN PRN for NAUSEA, #50 TAB 2 Refills Prov:KIMBERLY LIMA Sr., MD 08/31/23 Nitrofurantoin/Nitrofuran Mac (Macrobid) 100 Mg Cap, 1 CAP PO BID for 7 Days, #14 CAP 0 Refills Prov:KIMBERLY LIMA Sr., MD 08/31/23 Nitrofurantoin/Nitrofuran Mac (Macrobid) 100 Mg Cap, 1 CAP PO BID for 7 Days, #14 CAP 0 Refills Prov:ELODIA YEAGER [employer]IC GENER[employer] WORKER 07/08/23 Neomy Sulf/Polymyx B Sulf/Hc (Cortisporin Otic Soln) 3.5 Mg/Ml-10,000 Unit/Ml-1 % Otsol, 4 DROP AD QID for 7 Days, #1 BOTTLE Prov:LISA IZQUIERDO [employer] WORK[employer] 07/03/23 Acetaminophen (Tylenol) 500 Mg Tab, 500 MG PO Q4PRN PRN for PAIN, #20 TAB 0 Refills Prov:FELECIALISA [employer] GENER[employer] WORKER 07/03/23 Azithromycin (Zithromax) 250 Mg Tablet, 250 MG PO ONCE for 4 Days, #4 TAB 0 Refills Prov:LISA IZQUIERDO [facility] 07/03/23 Sulfamethoxazole/Trimethoprim (Bactrim Ds Tablet) 1 Each Tablet, 1 TAB PO BID for 7 Days, #14 TAB 0 Refills Prov:ELODIA YEAGER [facility] 04/03/23 Ibuprofen (Motrin/Advil) 800 Mg Tab, 800 MG PO TID, #30 TAB Prov:EDMUNDO GRAMAJO MD 01/25/23 Ondansetron HCl (Zofran) 2 Mg/Ml Inj, 4 MG PO Q12H for NUASEA for 7 Days, #14 ML Prov:GANESH BOSE [facility] 11/20/22 Methocarbamol (Robaxin) 750 Mg Tab, 750 MG PO AT NIGHT for MUSCLE for 5 Days, #5 TAB Prov:GANESH BOSE [facility] 11/20/22 Cephalexin Monohydrate (Keflex) 500 Mg Cap, 500 MG PO TID, #21 CAP Prov:STEPHEN RITTER 06/29/22 Acetaminophen (Tylenol) 325 Mg Tablet, 650 MG PO Q4HPRN, #50 TAB Prov:STEPHEN RITTER 06/29/22 Ondansetron HCl (Zofran) 2 Mg/Ml Inj, 4 MG PO Q6H for 3 Days, #12 ML Prov:SOLOMON ADAMS MD 06/09/22 Ondansetron (Ondansetron Odt) 4 Mg Tab.rapdis, 4 MG PO TID, #30 TAB Prov:STEPHEN RITTER 04/06/22 Cephalexin Monohydrate (Keflex) 500 Mg Cap, 500 MG PO TID for 7 Days, #21 CAP Prov:STEPHEN RITTER 04/06/22 Past Medical History Past Medical History: No Pertinent History (Past Medical History: Asthma, Diabetes-Type II, High Cholesterol, Hypertension, Other) Past Surgical History: Other Surgical History Other: RIGHT BREAST SX Family History Family History: Negative Social History Social History: Negative, Lives with family Female( History) History: Not Applicable LMP: December 19, 2024 : 5 Para: 4 Aborts: 1 ROS Dictation Constitutional: (-) chills, (-) diaphoresis, (-) fever, (-) malaise, (-) weakness, (-) other documentation EENTM: (+) eye pain Respiratory: (-) cough, (-) orthopnea, (-) short of breath, (-) stridor, (-) wheezing, (-) other documentation Cardiovascular: (-) chest pain, (-) edema, (-) palpitations, (-) syncope, (-) dyspnea on exertion, (-) other documentation Gastrointestinal/Abdominal: (+) nausea Genitourinary: (-) vaginal discharge, (-) vaginal bleeding, (-) dysuria, (-) frequency, (-) hematuria, (-) pain, (-) other documentation Musculoskeletal: (+) Neck pain, (+) back pain Skin: (-) laceration, (-) contusion, (-) abrasion, (-) abscess, (-) rash, (-) change in color, (-) change in hair, (-) change in nails, (-) diaphoresis, (-) dryness, (-) other documentation Neuro: (+) headache; (-) altered mental status, (-) syncope, (-) paralysis, (-) numbness, (-) seizure, (-) pre-existing deficit, (-) tremors, (-) weakness, (-) dizziness, (-) slurred speech, (-) vertigo, (-) other documentation Physical Exam Physical Exam Dictation General Appearance: (+) moderate distress General Appearance comment Patient is sitting in the hospital bed in her room with the lights turned off because of photophobia. Orientation: (+) oriented x 3 Head/Face Trauma: No Ear, Nose, Throat: (+) hearing grossly normal, (+) normal ENT inspection, (+) moist mucous membraine Neck: (+) normal inspection, (+) supple, (+) full range of motion, (+) no JVD, (+) tender Respiratory: (+) chest non-tender, (+) lungs clear Heart: (+) regular, (+) no gallop Vascular: (+) no edema Gastrointestinal: (+) soft, (+) non-tender, (+) bowel sound present Results Laboratory and Microbiology Lab and Micro Result Laboratory Tests Test 01/04/25 14:21 01/04/25 22:02 White Blood Count 8.4 K/uL (4.8-10.8) Red Blood Count 4.59 MIL/uL (4.00-5.50) Hemoglobin 12.6 g/dL (12.0-16.0) Hematocrit 38.2 % (36-48) Mean Corpuscular Volume 83.2 fL (79-99) Mean Corpuscular Hemoglobin 27.5 pg (27.0-33.0) Mean Corpuscular Hemoglobin Concent 33.0 g/dL (32.0-36.0) Red Cell Distribution Width 13.7 % (11.0-15.5) Platelet Count 388 K/uL (130-400) Mean Platelet Volume 8.8 fL (7.5-10.5) Immature Granulocyte % (Auto) 0.2 % (0-1) Neutrophils (%) (Auto) 57.1 % (40.0-77.0) Lymphocytes (%) (Auto) 33.4 % (21.0-51.0) Monocytes (%) (Auto) 5.6 % (3.0-13.0) Eosinophils (%) (Auto) 3.1 % (0.0-8.0) Basophils (%) (Auto) 0.6 % (0.0-5.0) Neutrophils # (Auto) 4.8 K/uL (1.8-7.7) Lymphocytes # (Auto) 2.8 K/uL (1.0-4.8) Monocytes # (Auto) 0.5 K/uL (0.1-1.0) Eosinophils # (Auto) 0.26 K/uL (0.00-0.70) Basophils # (Auto) 0.05 K/uL (0.00-0.20) Absolute Immature Granulocyte (auto 0.02 K/uL (0-1) Nucleated Red Blood Cells 0.0 % (0.0-0.19) Sodium Level 140 mmol/L (136-145) Potassium Level 3.5 mmol/L (3.5-5.1) Chloride Level 104 mmol/L (101-111) Carbon Dioxide Level 27 mmol/L (21-32) Blood Urea Nitrogen 9 mg/dL (7-18) Creatinine 0.8 mg/dL (0.5-1.0) Glomerular Filtration Rate Calc 98 mL/min (>90) Random Glucose 112 mg/dL (70-105) H Total Calcium 8.9 mg/dL (8.5-10.1) Urine Color LIGHT-YELLOW (YELLOW) Urine Appearance CLOUDY (CLEAR) H Urine pH 8.0 (5.0-8.0) Urine Specific [place] 1.010 (1.001-1.031) Urine Protein NEGATIVE mg/dL (NEGATIVE) Urine Glucose (UA) NEGATIVE mg/dL (NEGATIVE) Urine Ketones NEGATIVE mg/dL (NEGATIVE) Urine Occult Blood NEGATIVE (NEGATIVE) Urine Nitrate NEGATIVE (NEGATIVE) Urine Bilirubin NEGATIVE mg/dL (NEGATIVE) Urine Urobilinogen 0.2 mg/dL (0.2-1.0) Urine Leukocyte Esterase NEGATIVE [place]/uL Urine RBC 0-1 /HPF (0-1) Urine WBC 2-5 /HPF (0-1) H Urine Squamous Epithelial Cells RARE /HPF (0-2) Urine Amorphous Crystals (Auto) RARE /LPF (None Seen) Urine Bacteria FEW /HPF (None Seen) Urine HCG, Qualitative NEGATIVE (NEGATIVE) Labs Reviewed?: Yes MDM I will start this workup by assuming it is dehydration and muscle tension. Patient has no history of migraines. She had a single episode of a headache just like this when approximately a year ago. Her mother has a history of migraines; however, patient does not describe a prodrome leading to these symptoms or this headache. Her 1st symptom was ear pain. I will give her fluid Zofran Kenalog IM along with Norflex IM oral Flexeril and Toradol. Patient's symptoms have much improved. She is ready to go home. ED Course Orders Procedure Category Date Status Time Urinalysis Profile LAB 01/04/25 Complete 21:59 ,Urine Test LAB 01/04/25 Complete 21:59 Cbc With Differential LAB 01/04/25 Complete 22:29 Basic Metabolic Panel LAB 01/04/25 Complete 22:29 Cyclobenzaprine Hcl PHA 01/05/25 Complete (Cyclobenzaprine Hcl 00:00 Lactated Ringers PHA 01/04/25 Complete 1000ml (Lactated 23:55 Ondansetron 4mg PHA 01/05/25 In Process Tablet (Zofran 4mg 00:00 Ketorolac PHA 01/05/25 Complete Tromethamine 30mg/Ml 00:00 Triamcinolone Acet PHA 01/05/25 Complete 40mg/Ml 1ml (Kenalog 00:00 Orphenadrine Citrate PHA 01/05/25 Complete (Norflex) 00:00 Current Medications Medications (Trade) Dose Ordered Sig/Barbara Route PRN Reason Start Time Stop Time Status Last Admin Dose Admin Cyclobenzaprine HCl (Cyclobenzaprine HCl) 10 mg ONCE ONCE PO 01/05/25 00:00 01/05/25 00:02 DC 01/05/25 00:08 Ketorolac Tromethamine (toRADol) 30 mg ONCE ONCE IVP 01/05/25 00:00 01/05/25 00:02 DC 01/05/25 00:08 Lactated Ringer's (Lactated Ringers 1000ml) 1,000 ml BOLUS STAT IV 01/04/25 23:55 01/05/25 00:02 DC 01/05/25 00:08 Ondansetron HCl (zoFRAN 4MG TABLET) 4 mg ONCE ONCE PO 01/05/25 00:00 01/05/25 00:02 DC 01/05/25 00:08 Orphenadrine Citrate (Norflex) 60 mg ONCE ONCE IM 01/05/25 00:00 01/05/25 00:02 DC 01/05/25 00:08 Triamcinolone Acetonide (Kenalog 40) 40 mg ONCE ONCE IM 01/05/25 00:00 01/05/25 00:02 DC 01/05/25 00:08 Vital Signs Date Time Temp Pulse Resp B/P (MAP) Pulse Ox O2 Delivery O2 Flow Rate FiO2 01/04/25 21:55 98.1 82 18 138/85 99 0 DX & DISP Disposition: Discharge Departure Impression: Primary Impression: Dehydration Additional Impression: Headache Condition: Stable Referrals: AMY CONN JR, MD (PCP) I think your headache did come from dehydration creating muscle tension. Stay well hydrated make sure your urine runs clean it least once a day. Warm compresses and massages we will help. Given the lack of a prodrome I do not think you had a migraine. If you continue to have headaches like this please go to your primary care physician to help elucidate the cause. CASSIDY HERNANDEZ Jan 04, 2025 23:41 YESENIA MORA MD Jan 04, 2025 23:43
[2025-01-05] MEDS: LACTATED RINGERS 1000ML IV STA (00:08)
[2025-01-05] MEDS: CYCLOBENZAPRINE HCL 10 MG TABLET PO ONE (00:08)
[2025-01-05] MEDS: ondanSETRON 4MG TABLET PO ONE (00:08)
[2025-01-05] MEDS: TRIAMCINOLONE ACETONIDE 40 MG/ML 1ML VIAL IM ONE (00:08)
[2025-01-05] MEDS: ORPHENADRINE 60MG/2ML IM ONE (00:08)
[2025-01-05] MEDS: ketOROlac 30MG VIAL (30MG/ML) IVP ONE (00:08)
[2025-01-05 01:33] VITALS: BP 127/81; PULSE 79; RESP 18; TEMP 98.4; O2SAT 99
== END 2025-01-05 01:34 | disposition home or self-care (01) ==
LOC: EDH 21:52
DX: E86.0 Dehydration (principal); R51.9 Headache, unspecified; Z79.1 Long term (current) use of non-steroidal anti-inflammatories (NSAID); Z88.0 Allergy status to penicillin
CPT/HCPCS: 99284; 80048; 85025; 81001; 81025; 36415; 96374; 96372 ×2; Q0162; J1885; J7120; J3301; J2360

== ENCOUNTER 2025-01-07 20:38 | Emergency (ER) | payer BC ==
[~2025-01-07] VITALS: Ht 172.7 cm; Wt 91.2 kg
[2025-01-07 21:08] LABS: BASOPHILS # (AUTO) 0.04 K/uL (0.00-0.20); BASOPHILS % (AUTO) 0.3 % (0.0-5.0); EOSINOPHILS # (AUTO) 0.05 K/uL (0.00-0.70); EOSINOPHILS % (AUTO) 0.4 % (0.0-8.0); HEMATOCRIT 37.2 % (36-48); IMMATURE GRANULOCYTE ABSOLUTE 0.05 K/uL (0-1); LYMPHOCYTES # (AUTO) 2.7 K/uL (1.0-4.8); LYMPHOCYTES % (AUTO) 22.8 % (21.0-51.0); MEAN CORPUSCULAR HEMOGLOBIN 27.4 pg (27.0-33.0); MEAN CORPUSCULAR HGB CONC 32.5 g/dL (32.0-36.0); MEAN CORPUSCULAR VOLUME 84.4 fL (79-99); MONOCYTES # (AUTO) 0.7 K/uL (0.1-1.0); MONOCYTES % (AUTO) 5.8 % (3.0-13.0); NEUTROPHILS # (AUTO) 8.2 K/uL (1.8-7.7); NEUTROPHILS % (AUTO) 70.3 % (40.0-77.0); PLATELET COUNT (AUTO) 364 K/uL (130-400); RED BLOOD CELL COUNT(AUTO) 4.41 MIL/uL (4.00-5.50); RED CELL DISTRIBUTION WIDTH 13.8 % (11.0-15.5); WHITE BLOOD COUNT (AUTO) 11.7 K/uL (4.8-10.8)
[2025-01-07 21:15] LABS: CREATININE 0.7 mg/dL (0.5-1.0); POTASSIUM 3.8 mmol/L (3.5-5.1)
[2025-01-07] MEDS: ORPHENADRINE 60MG/2ML IM STA (21:32)
[2025-01-07] MEDS ORDERED: CYCL10TA16 PO (21:56)
--- NOTE | 2025-01-07 21:57 | ERN ---
ED Note History of Present Illness Stated Complaint: C/O SOB WITH CP RADIATING TO BACK Chief Complaint: Shortness of Breath Time Seen by MD: 20:44 Time Seen by Midlevel: 20:48 Dictation: 34-year-old female with no past medical history coming in complaining of chest pain, she states she noticed the chest pain when she is was carrying her baby. Patient states the pain is more noticeable when she tries to extend her arms forward as the pain radiates to the upper back. Allergies: Coded Allergies: Penicillins (Verified Allergy, Unknown, 12/25/14) Home Meds Active Scripts Methocarbamol (Methocarbamol) 500 Mg Tablet, 1 TAB PO TID for 7 Days, #21 TAB 0 Refills Prov:PENNIE FOLEY [employer]NALYSIS 05/12/24 Methocarbamol (Methocarbamol) 1,000 Mg Tablet, 1000 MG PO QIDP PRN for PAIN for 5 Days, #20 TAB Prov:PENNIE FOLEY [employer] 02/10/24 Nitrofurantoin/Nitrofuran Mac (Macrobid) 100 Mg Cap, 100 MG PO BID for 5 Days, #10 CAP Prov:CASSIDY HERNANDEZ 02/07/24 Ketorolac Tromethamine (Ketorolac Tromethamine) 10 Mg Tablet, 10 MG PO BID for 5 Days, #10 TAB Prov:CASSIDY HERNANDEZ 02/07/24 Pyridoxine HCl (Vitamin B-6) 25 Mg Tablet, 25 MG PO Q6HPRN PRN for NAUSEA, #50 TAB 2 Refills Prov:KIMBERLY LIMA Sr., MD 08/31/23 Nitrofurantoin/Nitrofuran Mac (Macrobid) 100 Mg Cap, 1 CAP PO BID for 7 Days, #14 CAP 0 Refills Prov:KIMBERLY LIMA Sr., MD 08/31/23 Nitrofurantoin/Nitrofuran Mac (Macrobid) 100 Mg Cap, 1 CAP PO BID for 7 Days, #14 CAP 0 Refills Prov:ELODIA YEAGER [employer]ING SUPERVISOR 07/08/23 Neomy Sulf/Polymyx B Sulf/Hc (Cortisporin Otic Soln) 3.5 Mg/Ml-10,000 Unit/Ml-1 % Otsol, 4 DROP AD QID for 7 Days, #1 BOTTLE Prov:LISA IZQUIERDO [employer] SHEAR[employer] SUPERVISOR 07/03/23 Acetaminophen (Tylenol) 500 Mg Tab, 500 MG PO Q4PRN PRN for PAIN, #20 TAB 0 Refills Prov:FELECIALISA [facility] 07/03/23 Azithromycin (Zithromax) 250 Mg Tablet, 250 MG PO ONCE for 4 Days, #4 TAB 0 Refills Prov:LISA IZQUIERDO [facility] 07/03/23 Sulfamethoxazole/Trimethoprim (Bactrim Ds Tablet) 1 Each Tablet, 1 TAB PO BID for 7 Days, #14 TAB 0 Refills Prov:ELODIA YEAGER [facility] 04/03/23 Ibuprofen (Motrin/Advil) 800 Mg Tab, 800 MG PO TID, #30 TAB Prov:EDMUNDO GRAMAJO MD 01/25/23 Ondansetron HCl (Zofran) 2 Mg/Ml Inj, 4 MG PO Q12H for NUASEA for 7 Days, #14 ML Prov:GANESH BOSE [place] 11/20/22 Methocarbamol (Robaxin) 750 Mg Tab, 750 MG PO AT NIGHT for MUSCLE for 5 Days, #5 TAB Prov:GANESH BOSE [place] 11/20/22 Cephalexin Monohydrate (Keflex) 500 Mg Cap, 500 MG PO TID, #21 CAP Prov:STEPHEN RITTER 06/29/22 Acetaminophen (Tylenol) 325 Mg Tablet, 650 MG PO Q4HPRN, #50 TAB Prov:STEPHEN RITTER 06/29/22 Ondansetron HCl (Zofran) 2 Mg/Ml Inj, 4 MG PO Q6H for 3 Days, #12 ML Prov:SOLOMON ADAMS MD 06/09/22 Ondansetron (Ondansetron Odt) 4 Mg Tab.rapdis, 4 MG PO TID, #30 TAB Prov:STEPHEN RITTER 04/06/22 Cephalexin Monohydrate (Keflex) 500 Mg Cap, 500 MG PO TID for 7 Days, #21 CAP Prov:STEPHEN RITTER 04/06/22 Past Medical History Past Medical History: No Pertinent History Surgical History: None Surgical History Other: RIGHT BREAST SX Family History: Negative Social History: Negative, Lives with family History: Not Applicable LMP: December 19, 2024 : 5 Para: 4 Aborts: 1 Review of System Dictation Constitutional: Negative for fever,chills, and weight loss Eyes: Negative for injury, pain,redness, and discharge ENT: Negative for injury,pain or swelling Cardiovascular: Positive for chest pain, no palpitations, and no edema Respiratory: Negative for shortness of breath, cough, and wheezing, Abdomen/GI: Negative for abdominal pain, nausea, vomiting, diarrhea, and constipation Back: Negative for injury and pain : Negative for injury, bleeding and discharge MS/Extremity: Negative for injury and deformity Skin: Negative for rash, and discoloration Neuro: Negative for headache, weakness, numbness, tingling, and seizure Psych: Negative for suicide ideation, homicidal ideation, and hallucinations Review of Systems: was completed Initial Vital Sign VS Vital Signs Date Time Temp Pulse Resp B/P (MAP) Pulse Ox O2 Delivery O2 Flow Rate FiO2 01/07/25 20:40 98.1 92 20 123/83 99 Room Air 01/07/25 21:36 0 21 Physical Exam Dictation General: awake, alert, NAD Head/Face: Normocephalic, atraumatic Eyes: PERRL, EOMI, vision at baseline ENT: oral cavity clear, TMs clear, no signs of infection Neck: Trachea midline, supple, no nuchal rigidity Cardiovascular: RRR, normal S1/S2, No MRGs, no JVD Respiratory: CTAB, no respiratory distress, No rales or wheezes Abdomen: Soft, non-tender, non-distended, normal bowel sounds, no guarding or rebound. Skin: Warm, dry, normal turgor, no rash MS/Extremity: Pulses equal, no cyanosis, neurovascular intact, FROM Neuro: COAx4, GCS 15, strength 5/5, CN 2-12 intact, normal cerebellar exam, normal gait, Psych: Normal behavior, mood, and affect normal Results (Laboratory/Radiology) Laboratory/Radiology Laboratory Tests Test 01/07/25 21:01 White Blood Count 11.7 K/uL (4.8-10.8) H Red Blood Count 4.41 MIL/uL (4.00-5.50) Hemoglobin 12.1 g/dL (12.0-16.0) Hematocrit 37.2 % (36-48) Mean Corpuscular Volume 84.4 fL (79-99) Mean Corpuscular Hemoglobin 27.4 pg (27.0-33.0) Mean Corpuscular Hemoglobin Concent 32.5 g/dL (32.0-36.0) Red Cell Distribution Width 13.8 % (11.0-15.5) Platelet Count 364 K/uL (130-400) Mean Platelet Volume 8.7 fL (7.5-10.5) Immature Granulocyte % (Auto) 0.4 % (0-1) Neutrophils (%) (Auto) 70.3 % (40.0-77.0) Lymphocytes (%) (Auto) 22.8 % (21.0-51.0) Monocytes (%) (Auto) 5.8 % (3.0-13.0) Eosinophils (%) (Auto) 0.4 % (0.0-8.0) Basophils (%) (Auto) 0.3 % (0.0-5.0) Neutrophils # (Auto) 8.2 K/uL (1.8-7.7) H Lymphocytes # (Auto) 2.7 K/uL (1.0-4.8) Monocytes # (Auto) 0.7 K/uL (0.1-1.0) Eosinophils # (Auto) 0.05 K/uL (0.00-0.70) Basophils # (Auto) 0.04 K/uL (0.00-0.20) Absolute Immature Granulocyte (auto 0.05 K/uL (0-1) Nucleated Red Blood Cells 0.0 % (0.0-0.19) Sodium Level 139 mmol/L (136-145) Potassium Level 3.8 mmol/L (3.5-5.1) Chloride Level 105 mmol/L (101-111) Carbon Dioxide Level 29 mmol/L (21-32) Blood Urea Nitrogen 13 mg/dL (7-18) Creatinine 0.7 mg/dL (0.5-1.0) Glomerular Filtration Rate Calc 115 mL/min (>90) Random Glucose 144 mg/dL (70-105) H Total Calcium 8.7 mg/dL (8.5-10.1) Troponin I High Sensitivity < 4 ng/L (4-50) L Labs Reviewed?: Yes EKG Comment: EKGs shows sinus rhythm. No STEMI interpreted by ER MD ED Course ED Course Orders Procedure Category Date Status Time 12 Lead Ekg Tracing- EKG 01/07/25 Logged Technical 20:45 Cbc With Differential LAB 01/07/25 Complete 20:51 Basic Metabolic Panel LAB 01/07/25 Complete 20:51 Troponin I High LAB 01/07/25 Complete Sensitivity 20:51 Orphenadrine Citrate PHA 01/07/25 Complete (Norflex) 20:52 Acetaminophen With PHA 01/07/25 Complete Codeine (Tylenol-Code 21:44 Current Medications Medications (Trade) Dose Ordered Sig/Barbara Route PRN Reason Start Time Stop Time Status Last Admin Dose Admin Acetaminophen/ Codeine Phosphate (TYLenol-coDEINE TAB) 1 tab ONCE STAT PO 01/07/25 21:44 01/07/25 21:45 Orphenadrine Citrate (Norflex) 60 mg ONCE STAT IM 01/07/25 20:52 01/07/25 20:57 DC 01/07/25 21:32 Vital Signs Date Time Temp Pulse Resp B/P (MAP) Pulse Ox O2 Delivery O2 Flow Rate FiO2 01/07/25 21:36 81 18 117/80 98 Room Air* 0 21 01/07/25 20:40 98.1 92 20 123/83 99 Room Air HEART Score Response (Comments) Value History: Low suspicion (0) 0 EKG: Normal 0 Age: < 45yrs (0) 0 Risk Factors: No known risk factors (0) 0 Initial Troponin: Normal limit (0) 0 Total 0 Medical Decision Making MDM MDM: 34-year-old female with no past medical history coming in complaining of chest pain, she states she noticed the chest pain when she is was carrying her baby. Patient states the pain is more noticeable when she tries to extend her arms forward as the pain radiates to the upper back. Blood work unremarkable. Troponin is negative. EKGs shows no ST elevations or dysrhythmias. Heart score is 0. Able to go in discussed findings with the patient, patient states it is before she can be discharged and can give her a Tylenol 3. Discussed with the patient she needs to follow up with PCP in 1-2 days and to return to the hospita if symptoms worsen. Differential diagnosis: ACS, anxiety, costochondritis swab pain Rationale: Tests considered and ordered secondary to shared decision making include: Previous outside records reviewed: Old ER visits. Risk of complication and/or morbidity or mortality of patient management: None Medications-Per medication reconciliation Need for hospitalization: Patient does not meet criteria for hospitalization. Need for emergency major/minor surgery: No There are no social concerns with this patient. Prescription drug management Prescriptions will include symptomatic care Patient's prior external medical records from other ER visits were reviewed by me as indicated. Prior testing and results from previous visits were reviewed. Prior tests were taken into account with medical decision making and resource utilization, independent historian/historians were used to obtain complete medical history. I independently interpreted the test that were performed, results were reviewed by me and considered findings on radiology if ordered. Medical management and examination interpretation discussions were had by me with other qualified healthcare professionals as indicated for the patient's care. DX & DISP Disposition: Discharge Departure Impression: Primary Impression: Chest wall pain Condition: Stable Scripts Cyclobenzaprine HCl (Flexeril) 10 Mg Tab 1 TAB PO TID for muscle spasms for 5 Days, #15 TAB 0 Refills Prov: PENNIE FOLEY NP 01/07/25 Referrals: AMY CONN JR, MD (PCP) Time of Disposition: 21:55 I have reviewed the case, and I agree with, Diagnosis and Plan PENNIE FOLEY NP Jan 07, 2025 21:56
[2025-01-07] MEDS: acetaMINOPHEN WITH coDEINE 1 TAB TAB PO STA (22:12)
[2025-01-07 22:51] VITALS: BP 119/77; PULSE 77; RESP 18; TEMP 98.1; O2SAT 99
--- NOTE | 2025-01-08 04:47 | EKG ---
[facility] Test Date: 2025-01-07 Test Time: 20:45:46 Pat Name: YENY LIPSCOMB Department: ED Room: Gender: F Electronic Technologist: [id number] : 1990 Requested By: DESMOND RUSH Order Number: [id number] Reading MD: Osorio Harry Measurements Intervals [place] Rate: 90 P: 44 AR: 139 QRS: 33 QRSD: 91 T: 35 QT: 352 QTc: 432 Interpretive Statements Sinus rhythm Compared to ECG 12/23/2021 20:09:51 No significant changes Electronically Signed On 01-08-2025 13:29:11 CDT by Osorio Harry Please click the below link to view image of tracing.
== END 2025-01-07 22:53 | disposition home or self-care (01) ==
LOC: EDH 20:38
DX: R07.89 Other chest pain (principal); Z79.1 Long term (current) use of non-steroidal anti-inflammatories (NSAID); Z88.0 Allergy status to penicillin
CPT/HCPCS: 36415; 80048; 84484; 85025; 93005; 96372; 99284; J2360

== ENCOUNTER 2025-04-12 12:42 | Emergency (ER) | payer BC ==
[~2025-04-12] VITALS: Ht 170.2 cm; Wt 95.3 kg
[~2025-04-12 12:42] MED LIST changes: +CYCL10TA16 PO
[2025-04-12 12:44] VITALS: BP 134/83; PULSE 84; RESP 20; TEMP 98.9
[2025-04-12] MEDS ORDERED: CLIN-141 PO (12:55)
--- NOTE | 2025-04-12 12:56 | ERN ---
General Chief Complaint: Eye Problems Stated Complaint: RT EYE IRRITATION Time Seen by MD: 12:46 Source: patient History of Present Illness Initial Comments Patient is a 35-year-old female coming in complaining of right eye discomfort. Per patient she states that yesterday she noticed a little bump eyelid. States that she has pressed it extracted some fluid. States that it has not affected her vision. Allergies: Coded Allergies: Penicillins (Verified Allergy, Unknown, 12/25/14) Home Meds Active Scripts Cyclobenzaprine HCl (Flexeril) 10 Mg Tab, 1 TAB PO TID for muscle spasms for 5 Days, #15 TAB 0 Refills Prov:PENNIE FOLEY [facility] 01/07/25 Methocarbamol (Methocarbamol) 500 Mg Tablet, 1 TAB PO TID for 7 Days, #21 TAB 0 Refills Prov:PENNIE FOLEY [facility] P[facility]ER 05/12/24 Methocarbamol (Methocarbamol) 1,000 Mg Tablet, 1000 MG PO QIDP PRN for PAIN for 5 Days, #20 TAB Prov:PENNIE FOLEY [facility] PULLER 02/10/24 Nitrofurantoin/Nitrofuran Mac (Macrobid) 100 Mg Cap, 100 MG PO BID for 5 Days, #10 CAP Prov:CASSIDY HERNANDEZ PA 02/07/24 Ketorolac Tromethamine (Ketorolac Tromethamine) 10 Mg Tablet, 10 MG PO BID for 5 Days, #10 TAB Prov:CASSIDY HERNANDEZ PA 02/07/24 Pyridoxine HCl (Vitamin B-6) 25 Mg Tablet, 25 MG PO Q6HPRN PRN for NAUSEA, #50 TAB 2 Refills Prov:KIMBERLY LIMA Sr., MD 08/31/23 Nitrofurantoin/Nitrofuran Mac (Macrobid) 100 Mg Cap, 1 CAP PO BID for 7 Days, #14 CAP 0 Refills Prov:KIMBERLY LIMA Sr., MD 08/31/23 Nitrofurantoin/Nitrofuran Mac (Macrobid) 100 Mg Cap, 1 CAP PO BID for 7 Days, #14 CAP 0 Refills Prov:ELODIA YEAGER [employer] 07/08/23 Neomy Sulf/Polymyx B Sulf/Hc (Cortisporin Otic Soln) 3.5 Mg/Ml-10,000 Unit/Ml-1 % Otsol, 4 DROP AD QID for 7 Days, #1 BOTTLE Prov:FELECIALISA [facility] 07/03/23 Acetaminophen (Tylenol) 500 Mg Tab, 500 MG PO Q4PRN PRN for PAIN, #20 TAB 0 Refills Prov:LISA IZQUIERDO [facility] 07/03/23 Azithromycin (Zithromax) 250 Mg Tablet, 250 MG PO ONCE for 4 Days, #4 TAB 0 Refills Prov:LISA IZQUIERDO [facility] 07/03/23 Sulfamethoxazole/Trimethoprim (Bactrim Ds Tablet) 1 Each Tablet, 1 TAB PO BID for 7 Days, #14 TAB 0 Refills Prov:ELODIA YEAGER [facility] 04/03/23 Ibuprofen (Motrin/Advil) 800 Mg Tab, 800 MG PO TID, #30 TAB Prov:EDMUNDO GRAMAJO MD 01/25/23 Ondansetron HCl (Zofran) 2 Mg/Ml Inj, 4 MG PO Q12H for NUASEA for 7 Days, #14 ML Prov:GANESH [facility]SE [facility] 11/20/22 Methocarbamol (Robaxin) 750 Mg Tab, 750 MG PO AT NIGHT for MUSCLE for 5 Days, #5 TAB Prov:GANESH [facility]SE [facility] 11/20/22 Cephalexin Monohydrate (Keflex) 500 Mg Cap, 500 MG PO TID, #21 CAP Prov:STEPHEN RITTER 06/29/22 Acetaminophen (Tylenol) 325 Mg Tablet, 650 MG PO Q4HPRN, #50 TAB Prov:STEPHEN RITTER 06/29/22 Ondansetron HCl (Zofran) 2 Mg/Ml Inj, 4 MG PO Q6H for 3 Days, #12 ML Prov:SOLOMON ADAMS MD 06/09/22 Ondansetron (Ondansetron Odt) 4 Mg Tab.rapdis, 4 MG PO TID, #30 TAB Prov:STEPHEN RITTER 04/06/22 Cephalexin Monohydrate (Keflex) 500 Mg Cap, 500 MG PO TID for 7 Days, #21 CAP Prov:STEPHEN RITTER 04/06/22 Past Medical History Past Medical History: No Pertinent History Past Surgical History: None Surgical History Other: RIGHT BREAST SX Family History Family History: Negative Social History Social History: Negative, Lives with family Female( History) History: Not Applicable LMP: Apr 06, 2025 : 5 Para: 4 Aborts: 1 ROS Dictation CONSTITUTIONAL: No chills, no fever, no weakness, no diaphoresis, no malaise. HEAD/FACE: No signs of trauma. EENT: eye pain, no blurred vision, no tearing, no double vision, no ear pain, no ear discharge, no nose pain, no nasal congestion, no throat pain, no throat swelling, no mouth pain. RESPIRATORY: No cough, no orthopnea, no SOB, no stridor, no wheezing. CARDIOVASCULAR: No chest pain, no edema, no palpitations, no syncope. GASTROINTESTINAL/ABDOMINAL: No abdominal pain, no constipation, no diarrhea, no nausea, no vomiting. GENITOURINARY: No abnormal discharge, no dysuria, no frequent urination, no hematuria. No complaints of pain in the genitals. MUSCULOSKELETAL: No back pain, no gout, no joint pain, no joint swelling, no muscle pain, no muscle stiffness, no neck pain. INTEGUMENTARY: No change in color, no change in hair/nails, no dryness, no lesion, no lumps, no rash. NEUROLOGICAL/PSYCH: No anxiety, not depressed, no emotional problem, no headache, no numbness, no pre-existing deficit, no history of seizures, no tremors, no weakness. HEMATOLOGIC/LYMPHATIC: Not anemic, no history of blood clots, no apparent bleeding, no bruising, glands not swollen. All Systems Negative, Except as Noted. Physical Exam Physical Exam Dictation VITAL SIGNS: Reviewed. GENERAL APPEARANCE: Alert, oriented x3, no acute distress, obese. HEAD AND FACE: Non-traumatic. EYES: PERRL, pink conjunctivas, eyelid right lower erythema EARS: Pinnas intact and no signs of trauma or erythema. Ear canals clear and no discharge. TMs no erythema. NOSE: No discharge, no bleeding. OROPHARYNX: Mouth normal, teeth no caries, tongue pink. Pharynx clear, no erythema. Tonsils no exudates, no abscesses noted. Mucous membrane moist. NECK: Supple, non-tender, no thyromegaly, no masses, no JVD, no bruits. BREAST: Deferred. CHEST: No tenderness, no crepitus, no paradoxical movement, no retractions. LUNGS: Clear, well-ventilated, symmetric, no rales, no wheezing, no rhonchi, no stridor, good breath sounds bilaterally. HEART: Regular rate, regular rhythm, no murmur, no gallops. VASCULAR: No peripheral edema. ABDOMEN: Soft, positive bowel sounds, nondistended, no guarding, nontender, no rebound, no masses no hepatomegaly, no splenomegaly, no Vyas's sign, no hernias. RECTAL: Deferred. GENITAL: Deferred. NEUROLOGICAL: Normal speech, gross motor function intact, gross sensory function intact. MUSCULOSKELETAL: Neck nontender, full range of motion, back nontender, full range of motion. EXTREMITIES: Nontender, full range of motion. SKIN: Color pink, dry, no turgor, no rash, no lacerations, no abrasions, no contusions. LYMPHATICS: Deferred. Results Laboratory and Microbiology Labs Reviewed?: Yes MDM MDM: Differential diagnosis: Insect bite, cellulitis, Rationale: Tests considered and ordered secondary to shared decision making include: Previous outside records reviewed: Old ER visits. Risk of complication and/or morbidity or mortality of patient management: None Medications-Per medication reconciliation Need for hospitalization: Patient does not meet criteria for hospitalization. Need for emergency major/minor surgery: No Patient is a 35-year-old female coming in complaining of right lead in his is a on physical exam there is a little erythema patient did state that she compressed the lower eyelid extracted some fluid. Did advised her not to do that lower eyelid was cleaned has not affected his vision conjunctiva with a normal limits. Topical antibiotics for into his clean with a prescribing oral antibiotics ongoing management ED Course Vital Signs Date Time Temp Pulse Resp B/P (MAP) Pulse Ox O2 Delivery O2 Flow Rate FiO2 04/12/25 12:44 99.0 84 20 134/83 98 0 DX & DISP Disposition: Discharge Departure Impression: Primary Impression: Insect bite Additional Impression: Cellulitis Condition: Stable Scripts Clindamycin HCl (Clindamycin HCl) 300 Mg Capsule 1 CAP PO TID for 10 Days, #30 CAP 0 Refills Prov: ELEANOR BRICENO MD 04/12/25 Additional Instructions: FOLLOW-UP WITH PRIMARY CARE PROVIDER IN 1 TO 2 DAYS. TAKE MEDICATIONS DIRECTED HERE IN THE EMERGENCY ROOM. OKAY TO CONTINUE HOME MEDICATIONS UNLESS OTHERWISE DISCUSSED DURING YOUR VISIT IN THE EMERGENCY ROOM TODAY. RETURN TO YOUR NEAREST EMERGENCY ROOM IF SYMPTOMS WORSEN OR IF THERE IS NO IMPROVEMENT. C ALL 911 IF YOU NEED IMMEDIATE ASSISTANCE. TAKE TYLENOL [id number] NEEDED AND IF NO CONTRAINDICATIONS ARE PRESENT. INCREASE ORAL HYDRATION. A WOUND CULTURE OR URINE CULTURE WAS ORDERED HERE IN THE EMERGENCY ROOM DEPARTMENT PLEASE FOLLOW-UP WITH PRIMARY CARE PROVIDER AND ADVISE THEM TO GET REPORTS FROM OUR FACILITY. IF YOU HAD ANY PACHECO WRAP/SPLINTS THAT WERE APPLIED HERE, PLEASE DO NOT REMOVE THEM UNTIL YOU SEE YOUR PRIMARY CARE OR SPECIALTY. Referrals: Referrals: AMY CONN JR, MD (PCP) Time of Disposition: 12:55 ELEANOR BRICENO MD Apr 12, 2025 12:56
[2025-04-12] MEDS: NEOMY SULF/BACITRA/POLYMYXIN B 1 EACH PACKET TP ONE (13:10)
== END 2025-04-12 13:31 | disposition home or self-care (01) ==
LOC: EDH 12:42
DX: H00.032 Abscess of right lower eyelid (principal); Z79.1 Long term (current) use of non-steroidal anti-inflammatories (NSAID); Z88.0 Allergy status to penicillin; W57.XXXA Bitten or stung by nonvenomous insect and other nonvenomous arthropods, initial encounter
CPT/HCPCS: 99283

== ENCOUNTER 2025-06-19 11:40 | Emergency (ER) | payer OTHER, BC ==
[~2025-06-19] VITALS: Ht 170.2 cm; Wt 95.3 kg
[~2025-06-19 11:40] MED LIST changes: +CLIN-141 PO
[2025-06-19 11:56] VITALS: BP 138/72; PULSE 92; RESP 16; TEMP 98; O2SAT 99
[2025-06-19] MEDS ORDERED: NAPR-1196 PO (12:51)
[2025-06-19] MEDS ORDERED: CYCL10TA16 PO (12:51)
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
== END 2025-06-19 12:56 | disposition home or self-care (01) ==
LOC: EDH 11:40
DX: S33.5XXA Sprain of ligaments of lumbar spine, initial encounter (principal); Z88.0 Allergy status to penicillin; Z79.1 Long term (current) use of non-steroidal anti-inflammatories (NSAID); V89.2XXA Person injured in unspecified motor-vehicle accident, traffic, initial encounter; Y93.I9 Activity, other involving external motion; Y92.488 Other paved roadways as the place of occurrence of the external cause; Y99.8 Other external cause status
CPT/HCPCS: 99283